=== PATIENT | male | born 2000 | race Caucasian/White ===

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

== ENCOUNTER 2019-06-10 12:20 | Emergency (ER) | payer OTHER ==
[2019-06-10 12:40] VITALS: BMI 26.9
[2019-06-10] MEDS ORDERED: FAMOTIDINE 20 MG/50 ML IVPB 20 MG/50 ML MG IVPB ONE ×2 (13:32→14:27)
[2019-06-10] MEDS ORDERED: SODIUM CHLORIDE 1,000 ML IV STA ×2 (13:32→16:16)
[2019-06-10] MEDS ORDERED: METOCLOPRAMIDE HCL INJECTION 10 MG/2 ML VIAL IVPUSH ONE (13:32)
[2019-06-10] MEDS ORDERED: METOCLOPRAMIDE HCL INJECTION 10 MG/2 ML VIAL ONE (14:28)
[2019-06-10 14:35] LABS: BASO % 0.3 % (0-2.0); HEMATOCRIT 39.7 % (35.4-49); HEMOGLOBIN 13.6 GM/dL (11.7-16.9); LYMPH % 10.9 % (8-40); MCH 29.3 pg (25.7-33.7); MCHC 34.3 g/dl (32.0-35.9); MEAN CELL VOLUME 85.4 fl (80-96); MONO % 7.7 % (3.8-10.2); NEUT % 81.1 % (42.8-82.8); RBC 4.65 M/mm3 (4.00-5.60); RDW 13.3 % (11.9-15.9); WHITE BLOOD COUNT 4.5 K/mm3 (4.0-10.0)
[2019-06-10] MEDS ORDERED: ACETAMINOPHEN 1000 MG/100 ML VIAL (NON FORMULARY) IVPB ONE (14:43)
[2019-06-10 14:49] LABS: PLATELET COUNT 222 K/MM3 (134-434)
--- NOTE | 2019-06-10 14:51 | PDOC ---
History of Present Illness - General Chief Complaint: Cold Symptoms Stated Complaint: DIZZNESS/ BODYACHE/ FEVER Time Seen by Provider: 06/10/19 12:55 History Source: Patient Exam Limitations: No Limitations - History of Present Illness Initial Comments: 06/10/19 15:01 18 yo M w/ a h/o asthma as a child comes in with mom c/o 3 days of multiple episodes of NBNB vomiting, NB diarrhea, nausea, a progressively increasing diffuse pounding headache which started as mild and progressively got worse, fever up to 102, diffuse crampy abdominal pain, a cough, runny nose, nasal congestion. Unable to tolerate PO. Pt was in the DR for 2 weeks, returned this am. No known sick contacts. (+)itchy rash to he arms and legs, which is getting better now. No other complaints today. Pt took a decongestant and ibuprofen 2 days ago, which helped but only temporarily. He denies eating anything out of the ordinary. He was eating a lot of fried chicken and rice, denies eating raw seafood. Past History - Past Medical History Allergies/Adverse Reactions: Allergies Allergy/AdvReac Type Severity Reaction Status Date / Time shrimp Allergy Verified 05/06/17 16:03 Home Medications: Ambulatory Orders Naproxen [Naprosyn -] 500 mg PO BID PRN #14 tablet 05/06/17 Thyroid Disease: No - Immunization History Immunization Up to Date: Yes - Suicide/Smoking/Psychosocial Hx Smoking Status: No Smoking History: Never smoked Have you smoked in the past 12 months: No Number of Cigarettes Smoked Daily: 0 Hx Alcohol Use: No Drug/Substance Use Hx: No Substance Use Type: None Hx Substance Use Treatment: No Review of Systems - Review of Systems Able to Perform ROS?: Yes Constitutional: Yes: Chills, Fever, Malaise. No: Night Sweats HEENTM: No: Eye Pain, Recent change in vision, Throat Pain Respiratory: Yes: Cough, Shortness of Breath ( mild SOB with cough) Cardiac (ROS): No: Chest Pain, Palpitations, Chest Tightness ABD/GI: Yes: Diarrhea, Nausea, Vomiting, Abdominal cramping : No: Dysuria, Hematuria Musculoskeletal: No: Back Pain Integumentary: Yes: Rash Neurological: Yes: Headache. No: Numbness, Dizziness Psychiatric: Yes: Change in Appetite Endocrine: No: Unexplained Weight Loss *Physical Exam - Vital Signs Last Vital Signs Temp Pulse Resp BP Pulse Ox 102 F H 104 H 20 124/72 100 06/10/19 12:36 06/10/19 12:36 06/10/19 12:36 06/10/19 12:36 06/10/19 12:36 - Physical Exam General Appearance: Yes: Nourished. No: Apparent Distress HEENT: positive: RICHIE, Normal ENT Inspection, Normal Voice. negative: Pale Conjunctivae, Scleral Icterus (R), Scleral Icterus (L) Neck: positive: Supple, Other (No meningeal signs, (-)Brudzinski sign). negative: Decreased range of motion, Rigidity, Tender lateral, Tender midline Respiratory/Chest: positive: Lungs Clear, Normal Breath Sounds, Wheezing (mild end-inspiratory). negative: Respiratory Distress, Accessory Muscle Use Cardiovascular: positive: Regular Rhythm, Regular Rate Comments:: 06/10/19 15:08 A+Ox3 (person, place, time), normal sensorium. Visual hay: full to confrontation. Pupils: equal, round, and reactive to light. EOM: intact and smooth pursuit. No nystagmus. Sensation: V1, V2, and V3 normal b/l Facial strength: muscles of mastication, facial expression, shoulder shrug, and head turn normal. Hearing: grossly intact b/l Mouth: tongue protrudes midline and moves Left/Right equal b/l. Uvula rises symmetrically. Motor: UE and LE 5/5 diffusely. Sensation: light touch and pinprick WNL. Cerebellum: [id number] normal without dysmetria or intention tremor. [id number] wnl. No dysdiadodyskinesia. Gait: unassisted, steady, Romberg negative. No atalgia, difficulty in ambulation or ataxia. Gastrointestinal/Abdominal: positive: Normal Bowel Sounds, Tender (mild epigastric tenderness, no tenderness at mcBurney's point, no meredith's sign), Soft. negative: Guarding, Rebound Musculoskeletal: positive: Normal Inspection. negative: CVA Tenderness, Decreased Range of Motion Extremity: positive: Normal Capillary Refill, Normal Inspection, Normal Range of Motion. negative: Tender, Pedal Edema Integumentary: positive: Normal Color, Dry, Rash ((+)dry eczematous rash, scaly papules on an erythematous base at axilla seen, no vesicles, all lesions in same stage.). negative: Jaundice Neurologic: positive: Fully Oriented, Alert, Normal Mood/Affect ED Treatment Course - LABORATORY CBC & Chemistry Diagram: 06/10/19 14:20 06/10/19 14:20 - RADIOLOGY Radiology Studies Ordered: Category Date Time Status CHEST PA & LAT [RAD] Stat Radiology 06/10/19 13:29 Ordered - Medications Given in the ED: ED Medications Discontinued Medications Generic Name Dose Route Start Last Admin Trade Name Corneliusq PRN Reason Stop Dose Admin Diphenhydramine HCl 25 mg 06/10/19 13:32 06/10/19 14:39 Benadryl Injection - IVPUSH 06/10/19 13:33 25 mg ONCE ONE Administration Famotidine/Sodium Chloride 20 mg in 50 mls @ 100 mls/hr 06/10/19 13:32 14:39 Pepcid 20 Mg Premixed Ivpb - IVPB 06/10/19 14:01 100 mls/hr ONCE ONE Administration Sodium Chloride 1,000 mls @ 1,000 mls/hr 06/10/19 13:32 06/10/19 14:15 Normal Saline - IV 06/10/19 14:31 1,000 mls/hr ASDIR STA Administration Metoclopramide HCl 10 mg 06/10/19 13:32 06/10/19 14:39 Reglan Injection - IVPUSH 06/10/19 13:33 10 mg ONCE ONE Administration Medical Decision Making - Medical Decision Making 06/10/19 15:09 18 yo M w/ NVD, fever, cold symptoms, likely viral syndrome. Rash looks like a contact dermatitis. Will line and lab, give IV fluids, reglan, benadryl, pepcid , IV tylenol. Will do a CXR, check UA and reassess 06/10/19 16:25 Change of shift, care of patient signed over to EUGENIO Pritchard who will reassess patient, follow up labs, CXR and decide on dispo plan. Please repeat vitals. *DC/Admit/Observation/Transfer Diagnosis at time of Disposition: Viral syndrome - Referrals Referrals: James Cat MD [Primary Care Provider] - - Patient Instructions - Post Discharge Activity
[2019-06-10 15:08] LABS: ALBUMIN 3.7 g/dl (3.4-5.0); BILIRUBIN,TOTAL 0.2 mg/dL (0.2-1); BLOOD UREA NITROGEN 9.1 mg/dL (7-18); CALCIUM 8.7 mg/dL (8.5-10.1); PHOSPHOROUS 2.3 mg/dL (2.5-4.9); POTASSIUM 3.5 mmol/L (3.5-5.1); TOT PROT 7.8 g/dl (6.4-8.2)
[2019-06-10] MEDS ORDERED: ACETAMINOPHEN 325 MG TABLET (FP) ONE (15:35)
[2019-06-10] MEDS ORDERED: ACETAMINOPHEN INJECTION 100 ML IVPB ONE (15:40)
--- NOTE | 2019-06-10 16:35 | PDOC ---
*Physical Exam - Vital Signs Last Vital Signs Temp Pulse Resp BP Pulse Ox 102 F H 104 H 20 124/72 100 06/10/19 12:36 06/10/19 12:36 06/10/19 12:36 06/10/19 12:36 06/10/19 12:36 ED Treatment Course - LABORATORY CBC & Chemistry Diagram: 06/10/19 14:20 06/10/19 14:20 - ADDITIONAL ORDERS Additional order review: Laboratory Results 06/10/19 14:20 Sodium 137 Potassium 3.5 Chloride 102 Carbon Dioxide 29 Anion Gap 7 L BUN 9.1 Creatinine 1.0 Est GFR (CKD-EPI)AfAm 125.02 Est GFR (CKD-EPI)NonAf 107.87 Random Glucose 100 Calcium 8.7 Phosphorus 2.3 L Magnesium 2.0 Total Bilirubin 0.2 AST 21 ALT 16 Alkaline Phosphatase 69 Total Protein 7.8 Albumin 3.7 Lipase 97 06/10/19 14:20 RBC 4.65 MCV 85.4 MCHC 34.3 RDW 13.3 MPV 8.0 Neutrophils % 81.1 Lymphocytes % 10.9 D Monocytes % 7.7 D Eosinophils % 0.0 D Basophils % 0.3 - Medications Given in the ED: ED Medications Discontinued Medications Generic Name Dose Route Start Last Admin Trade Name Freq PRN Reason Stop Dose Admin Acetaminophen 1,000 mg 06/10/19 14:43 06/10/19 15:39 Ofirmev Injection - IVPB 06/10/19 14:44 1,000 mg ONCE ONE Administration Diphenhydramine HCl 25 mg 06/10/19 13:32 06/10/19 14:39 Benadryl Injection - IVPUSH 06/10/19 13:33 25 mg ONCE ONE Administration Famotidine/Sodium Chloride 20 mg in 50 mls @ 100 mls/hr 06/10/19 13:32 14:39 Pepcid 20 Mg Premixed Ivpb - IVPB 06/10/19 14:01 100 mls/hr ONCE ONE Administration Sodium Chloride 1,000 mls @ 1,000 mls/hr 06/10/19 13:32 06/10/19 14:15 Normal Saline - IV 06/10/19 14:31 1,000 mls/hr ASDIR STA Administration Metoclopramide HCl 10 mg 06/10/19 13:32 06/10/19 14:39 Reglan Injection - IVPUSH 06/10/19 13:33 10 mg ONCE ONE Administration Medical Decision Making - Medical Decision Making 06/10/19 16:30 The patient was seen and evaluated in conjunction with EUGENIO Bowers under my direct supervision, ancillary studies were reviewed. I independently interviewed and evaluated the patient and I agree with the plan as outlined by EUGENIO Bowers. Pt was feeling better at time of my exam, still had slight headache and cxr was pending. Pt is currently non toxic appearing, able to provide full ,medical history, receiving tylenol at present, drinking ice water. Will need cxr, repeat vitals and reevaluation for probale dc home. Pt reports nausea and vomiting with diarrhea over the last 4 days and fever, no focal tenderness on abdominal exam, dd includes but not limited to pneumonia, pt with coarse bs on lung exam, gastroenteritis due to nausea and vomiting with diarrhea. *DC/Admit/Observation/Transfer Diagnosis at time of Disposition: Viral syndrome - Referrals Referrals: James Cat MD [Primary Care Provider] - - Patient Instructions - Post Discharge Activity
[2019-06-10 17:32] LABS: PH,URINE 6.5 (5.0-8.0); URINE APPEARANCE CLEAR; URINE BILIRUBIN NEGATIVE (NEGATIVE); URINE COLOR YELLOW; URINE GLUCOSE (UA) NEGATIVE (NEGATIVE); URINE KETONE TRACE (NEGATIVE); URINE LEUK ESTERASE NEGATIVE (NEGATIVE); URINE NITRITE NEGATIVE (NEGATIVE); URINE PROTEIN NEGATIVE (NEGATIVE); URINE UROBILINOGEN 0.2 mg/dL (0.2-1.0)
[2019-06-10 19:05] VITALS: BP 114/69; PULSE 87; TEMP 99.6
--- NOTE | 2019-06-10 19:05 | PDOC ---
*Physical Exam - Vital Signs Last Vital Signs Temp Pulse Resp BP Pulse Ox 100.1 F H 94 H 20 128/84 99 06/10/19 17:24 06/10/19 17:24 06/10/19 17:24 06/10/19 17:24 06/10/19 17:24 ED Treatment Course - LABORATORY CBC & Chemistry Diagram: 06/10/19 14:20 06/10/19 14:20 - ADDITIONAL ORDERS Additional order review: Laboratory Results 06/10/19 06/10/19 17:15 14:20 Sodium 137 Potassium 3.5 Chloride 102 Carbon Dioxide 29 Anion Gap 7 L BUN 9.1 Creatinine 1.0 Est GFR (CKD-EPI)AfAm 125.02 Est GFR (CKD-EPI)NonAf 107.87 Random Glucose 100 Calcium 8.7 Phosphorus 2.3 L Magnesium 2.0 Total Bilirubin 0.2 AST 21 ALT 16 Alkaline Phosphatase 69 Total Protein 7.8 Albumin 3.7 Lipase 97 Urine Color Yellow Urine Appearance Clear Urine pH 6.5 Ur Specific [place] 1.024 Urine Protein Negative Urine Glucose (UA) Negative Urine Ketones Trace H Urine Blood Negative Urine Nitrite Negative Urine Bilirubin Negative Urine Urobilinogen 0.2 Ur Leukocyte Esterase Negative 06/10/19 14:20 RBC 4.65 MCV 85.4 MCHC 34.3 RDW 13.3 MPV 8.0 Neutrophils % 81.1 Lymphocytes % 10.9 D Monocytes % 7.7 D Eosinophils % 0.0 D Basophils % 0.3 - Medications Given in the ED: ED Medications Discontinued Medications Generic Name Dose Route Start Last Admin Trade Name Corneliusq PRN Reason Stop Dose Admin Acetaminophen 1,000 mg 06/10/19 14:43 06/10/19 15:39 Ofirmev Injection - IVPB 06/10/19 14:44 1,000 mg ONCE ONE Administration Diphenhydramine HCl 25 mg 06/10/19 13:32 06/10/19 14:39 Benadryl Injection - IVPUSH 06/10/19 13:33 25 mg ONCE ONE Administration Famotidine/Sodium Chloride 20 mg in 50 mls @ 100 mls/hr 06/10/19 13:32 14:39 Pepcid 20 Mg Premixed Ivpb - IVPB 06/10/19 14:01 100 mls/hr ONCE ONE Administration Sodium Chloride 1,000 mls @ 1,000 mls/hr 06/10/19 13:32 06/10/19 14:15 Normal Saline - IV 06/10/19 14:31 1,000 mls/hr ASDIR STA Administration Sodium Chloride 1,000 mls @ 1,000 mls/hr 06/10/19 16:16 06/10/19 17:00 Normal Saline - IV 06/10/19 17:15 1,000 mls/hr ASDIR STA Administration Metoclopramide HCl 10 mg 06/10/19 13:32 06/10/19 14:39 Reglan Injection - IVPUSH 06/10/19 13:33 10 mg ONCE ONE Administration Medical Decision Making - Medical Decision Making 06/10/19 19:00 Patient endorsed to me to follow chest x-ray labs and disposition. Seen and examined. He feels improved. Labs reviewed no acute findings chest x-ray negative. Selected Entries 06/10/19 17:24 Temperature 100.1 F H Pulse Rate [ 94 H Right Radial] Respiratory 20 Rate Blood Pressure 128/84 [Right Arm] O2 Sat by Pulse 99 Oximetry (%) I discussed the physical exam findings, ancillary test results and final diagnoses with the patient. I answered all of the patient's questions. The patient was satisfied with the care received and felt comfortable with the discharge plan and treatment plan. The Patient agrees to follow up with the primary care physician within 24-72 hours. Selected Entries 06/10/19 19:02 Temperature 99.6 F Pulse Rate [ 87 Right Radial] Respiratory 14 Rate Blood Pressure 114/69 [Right Arm] O2 Sat by Pulse 99 Oximetry (%) *DC/Admit/Observation/Transfer Diagnosis at time of Disposition: Viral syndrome - Discharge Dispostion Disposition: HOME Condition at time of disposition: Stable - Referrals Referrals: James Cat MD [Primary Care Provider] - - Patient Instructions Printed Discharge Instructions: DI for Viral Upper Respiratory Infection -- Adult Additional Instructions: Your Discharge Instructions: You must call primary care physician within 24 hours to arrange follow-up. Return to the Emergency Department with any new, persistent or worsening symptoms, for fever, chills, SOB, dizziness or any other concerning changes that may occur. Tenia Tylenol every 4 hours and Motrin every 6 hours around the clock for 24 hours. Drink lots of fluids and get rest. - Post Discharge Activity
== END 2019-06-10 19:08 | disposition home or self-care (01) ==
LOC: JER 12:20
PROC: 3E0337Z Introduction of Electrolytic and Water Balance Substance into Peripheral Vein, Percutaneous Approach (ICD-10-PCS; principal; 2019-06-10)
PROC: 3E033GC Introduction of Other Therapeutic Substance into Peripheral Vein, Percutaneous Approach (ICD-10-PCS; 2019-06-10)
PROC: 3E033GC Introduction of Other Therapeutic Substance into Peripheral Vein, Percutaneous Approach (ICD-10-PCS; 2019-06-10)
PROC: 3E033NZ Introduction of Analgesics, Hypnotics, Sedatives into Peripheral Vein, Percutaneous Approach (ICD-10-PCS; 2019-06-10)
DX: B34.9 Viral infection, unspecified (principal); L25.9 Unspecified contact dermatitis, unspecified cause; R05 Cough; R09.81 Nasal congestion
CPT/HCPCS: 36415; 71046-TC-FY; 80053; 81003; 83690; 83735; 84100; 85025; 87040; 87077; 87086; 96361; 96365; 96375; 99282-25; J0131; J7030

== ENCOUNTER 2019-06-13 13:38 | Emergency (ER) | payer OTHER ==
--- NOTE | 2019-06-13 13:48 | PDOC ---
Rapid Medical Evaluation Medical Evaluation: Allergies Allergy/AdvReac Type Severity Reaction Status Date / Time shrimp Allergy Verified 05/06/17 16:03 06/13/19 13:46 Pt is a call back for a positive blood culture. Like a contaminant based on results, however no PCP for follow up. Feels better, no fevers. Still vomiting and having nausea. Exam: Ambulatory, NAD Orders: Labs, repeat BC Pt to proceed to the ER for further evaluation Discharge Disposition - Diagnosis Viral syndrome - Referrals - Patient Instructions - Post Discharge Activity
[2019-06-13 13:49] VITALS: BP 124/58; PULSE 88; TEMP 97.8; BMI 26.9
[2019-06-13 14:16] LABS: BASO % 1.1 % (0-2.0); HEMATOCRIT 42.8 % (35.4-49); HEMOGLOBIN 14.6 GM/dL (11.7-16.9); LYMPH % 25.2 % (8-40); MCHC 34.1 g/dl (32.0-35.9); MEAN PLT VOLUME 9.1 fl (7.5-11.1); MONO % 22.4 % (3.8-10.2); NEUT % 50.3 % (42.8-82.8); PLATELET COUNT 93 K/MM3 (134-434); RBC 5.03 M/mm3 (4.00-5.60); RDW 13.4 % (11.9-15.9); WHITE BLOOD COUNT 7.3 K/mm3 (4.0-10.0)
[2019-06-13 14:45] LABS: ALBUMIN 3.6 g/dl (3.4-5.0); BILIRUBIN,TOTAL 0.3 mg/dL (0.2-1); BLOOD UREA NITROGEN 14.2 mg/dL (7-18); CALCIUM 9.1 mg/dL (8.5-10.1); CREATININE 0.9 mg/dL (0.55-1.3); POTASSIUM 3.5 mmol/L (3.5-5.1); TOT PROT 7.4 g/dl (6.4-8.2)
--- NOTE | 2019-06-13 14:55 | PDOC ---
History of Present Illness - General Chief Complaint: Revisit, Lab Variance Stated Complaint: NAUSEA/WEAKNESS Time Seen by Provider: 06/13/19 13:48 History Source: Patient Exam Limitations: Clinical Condition - History of Present Illness Initial Comments: 06/13/19 15:10 With no significant past medical history present with complaint of over 1 week history of persistent diarrhea, vomiting and intermittent abdominal pain status post going on vacation in [place] for 2 weeks return in a week ago and returning 6 days ago. Mother reported child started having some intermittent diarrhea episodes while he [place] past worsened after coming back from a condition. Mother reported child had a fever 103 over week ago. Patient denies nausea or abdominal pains now. Patient reported unable to keep any food down due to diarrhea and vomiting which he eats. Denies blood or mucus in stool. Patient was seen 3 days ago for same symptoms and all workup was negative but patient was recalled today for repeat blood culture as 1 blood cultures tube shows positive bacteria which could be contaminated. Patient denies no fever now Timing/Duration: gone Past History - Past Medical History Allergies/Adverse Reactions: Allergies Allergy/AdvReac Type Severity Reaction Status Date / Time shrimp Allergy Verified 06/13/19 13:49 Home Medications: Ambulatory Orders Naproxen [Naprosyn -] 500 mg PO BID PRN #14 tablet 05/06/17 Ciprofloxacin HCl [Cipro] 500 mg PO BID 5 Days #10 tablet 06/13/19 Famotidine [Pepcid -] 20 mg PO BID 5 Days #10 tablet 06/13/19 Ondansetron [Zofran *Odt*] 4 mg SL Q8H PRN #21 od.tablet 06/13/19 COPD: No Thyroid Disease: No - Immunization History Immunization Up to Date: Yes - Suicide/Smoking/Psychosocial Hx Smoking Status: No Smoking History: Never smoked Have you smoked in the past 12 months: No Number of Cigarettes Smoked Daily: 0 Hx Alcohol Use: No Drug/Substance Use Hx: No Substance Use Type: None Hx Substance Use Treatment: No Review of Systems - Review of Systems Able to Perform ROS?: Yes Is the patient limited Thai proficient: No Constitutional: Yes: Malaise. No: Chills, Fever, Weakness HEENTM: No: Symptoms Reported, See HPI, Eye Pain, Blurred Vision, Tearing, Recent change in vision, Double Vision, Cataracts, Ear Pain, Ocular Prothesis, Ear Discharge, Nose Pain, Nose Congestion, Tinnitus, Nose Bleeding, Hearing Loss , Throat Pain, Throat Swelling, Mouth Pain, Dental Problems, Difficulty Swallowing, Mouth Swelling, Other Respiratory: No: Symptoms reported, See HPI, Cough, Orthopnea, Shortness of Breath, SOB with Exertion, SOB at Rest, Stridor, Wheezing, Productive cough, Hemoptysis, Other Cardiac (ROS): No: Symptoms Reported, See HPI, Chest Pain, Edema, Irregular Heart Rate, Lightheadedness, Palpitations, Syncope, Chest Tightness, Other ABD/GI: Yes: Symptoms Reported, See HPI, Diarrhea, Nausea, Vomiting. No: Constipated, Difficulty Swallowing, Poor Appetite, Rectal Bleeding, Indigestion , Abdominal cramping : Yes: Symptoms Reported. No: Burning, Dysuria, Discharge, Frequency Neurological: No: Symptoms reported All Other Systems: Reviewed and Negative *Physical Exam - Vital Signs Last Vital Signs Temp Pulse Resp BP Pulse Ox 97.8 F 88 18 124/58 L 99 06/13/19 13:46 06/13/19 13:46 06/13/19 13:46 06/13/19 13:46 06/13/19 13:46 - Physical Exam Comments: 06/13/19 15:15 GENERAL: Well developed, well nourished. Awake and alert. No acute distress. HEENT: Normocephalic, atraumatic. PERRLA, EOMI. No conjunctival pallor. Sclera are non-icteric. Moist mucous membranes. Oropharynx is clear. NECK: Supple. Full ROM. CARDIOVASCULAR: Regular rate and rhythm. No murmurs, rubs, or gallops. Distal pulses are 2+ and symmetric. PULMONARY: No evidence of respiratory distress. Lungs clear to auscultation bilaterally. No wheezing, rales or rhonchi. ABDOMINAL: Soft. Non-tender. Non-distended. No rebound or guarding. No organomegaly. Normoactive bowel sounds. MUSCULOSKELETAL Normal range of motion at all joints. SKIN: Warm and dry. Normal capillary refill. No rashes. No cyanosis. NEUROLOGICAL: Alert, awake, appropriate. Gait is normal without ataxia. PSYCHIATRIC: Cooperative. Good eye contact. Appropriate mood General Appearance: Yes: Nourished, Appropriately Dressed. No: Apparent Distress ED Treatment Course - LABORATORY CBC & Chemistry Diagram: 06/13/19 14:00 06/13/19 14:00 - ADDITIONAL ORDERS Additional order review: Laboratory Results 06/13/19 14:00 Sodium 140 Potassium 3.5 Chloride 101 Carbon Dioxide 31 Anion Gap 8 BUN 14.2 Creatinine 0.9 Est GFR (CKD-EPI)AfAm 142.00 Est GFR (CKD-EPI)NonAf 122.52 Random Glucose 101 Calcium 9.1 Total Bilirubin 0.3 AST 89 H ALT 45 Alkaline Phosphatase 58 Total Protein 7.4 Albumin 3.6 06/13/19 14:00 RBC 5.03 MCV 85.0 MCHC 34.1 RDW 13.4 Neutrophils % 50.3 D Lymphocytes % 25.2 D Monocytes % 22.4 H D Eosinophils % 1.0 D Basophils % 1.1 D Medical Decision Making - Medical Decision Making 06/13/19 15:12 Patient with no significant past medical history present with complaint of one- week history of persistent GI symptoms and recalled for repeat blood cultures due to one cultured tube showing bacteria. Patient reported persistent nausea, vomiting and diarrhea but no fevers. No abdominal tenderness on exam and normal exam today. CBC and chemistry lab are unremarkable. Patient still reported feeling malaise and week. Repeat blood culture ordered. Patient be treated with Cipro antibiotics given symptoms has been persistent for over a week and Zofran as needed for nausea vomiting with GI follow-up. Patient advised to increase fluid intake and is stable for discharge *DC/Admit/Observation/Transfer Diagnosis at time of Disposition: Gastroenteritis Nausea & vomiting Qualifiers: Vomiting type: bilious vomiting Qualified Code(s): R11.14 - Bilious vomiting - Discharge Dispostion Disposition: HOME Condition at time of disposition: Stable Decision to Admit order: No - Prescriptions Prescriptions: Ciprofloxacin HCl [Cipro] 500 mg PO BID 5 Days #10 tablet Famotidine [Pepcid -] 20 mg PO BID 5 Days #10 tablet Ondansetron [Zofran *Odt*] 4 mg SL Q8H PRN #21 od.tablet PRN Reason: vomiting - Referrals Referrals: Gideon Nuñez MD [Staff Physician] - - Patient Instructions Printed Discharge Instructions: DI for Bacterial Gastroenteritis -- Adult Additional Instructions: Take medications as prescribed. Increase fluid intake. Follow-up referred GI doctor if symptoms persist for more than 3 days - Post Discharge Activity
[2019-06-13 16:18] LABS: ANISOCYTOSIS 0; MACROCYTOSIS 0; PLATELET ESTIMATE DECREASED
== END 2019-06-13 14:57 | disposition home or self-care (01) ==
LOC: JERFT 13:38
DX: K52.9 Noninfective gastroenteritis and colitis, unspecified (principal)
CPT/HCPCS: 36415; 80053; 85025; 87040; 99281-25